=== PATIENT | female | born 1960 | race Two or more races ===

== ENCOUNTER 2018-05-29 17:28 | Inpatient (IN) | payer MEDICAID, OTHER ==
[~2018-05-29] VITALS: Ht 160 cm; Wt 61.5 kg
[~2018-05-29 17:28] MED LIST: SUCCINYLCHOLINE CHLORIDE 200MG/10ML IV ONE
[2018-05-29] MEDS ORDERED: SODIUM CHLORIDE 0.9% 1,000 ML IV ONE ×2 (18:45→19:45)
[2018-05-29] MEDS ORDERED: INSULIN REGULAR (DRIP) 100 UNITS in SODIUM CHLORIDE 0.9% 100 ML IV ONE (18:45)
[2018-05-29 18:58] LABS: HEMATOCRIT. 49.9 % (36.0-48.0); HEMOGLOBIN. 16.7 g/dL (12.0-16.0); MEAN CORPUSCULAR HEMOGLOBIN 30.1 pg (28.0-32.0); MEAN PLATELET VOLUME 8.7 fl (7.4-10.4); PLATELET 471 x1000/uL (130-400); RED BLOOD CELL COUNT 5.55 mill/uL (4.2-5.4); RED CELL DISTRIBUTION WIDTH 13.9 % (11.6-14.6)
[2018-05-29] MEDS ORDERED: ETOMIDATE 2MG/ML 10ML VIAL IV ONE (19:00)
[2018-05-29] MEDS ORDERED: SUCCINYLCHOLINE CHLORIDE 200MG/10ML IV ONE (19:00)
[2018-05-29] MEDS ORDERED: MIDAZOLAM HCL 50 MG in DEXTROSE 5% WATER 40 ML IV ONE (19:00)
[2018-05-29] MEDS ORDERED: INSULIN REGULAR (DRIP) 100 UNITS in SODIUM CHLORIDE 0.9% 100 ML IV SCH (19:00)
[2018-05-29 19:01] LABS: CHLORIDE 94 mEq/L (98-107)
[2018-05-29] MEDS: PROPOFOL 10MG/ML 100ML 100 ML IV SCH ×2 (19:05→19:42)
[2018-05-29 19:33] LABS: PLATELET ESTIMATE INCREASED
[2018-05-29 19:43] LABS: BETA HYDROXYBUTYRATE 10.6 mMol/L (0.0-0.3)
[2018-05-29] MEDS ORDERED: MIDAZOLAM HCL 50 MG in DEXTROSE 5% WATER 40 ML IV NR (19:45)
[2018-05-29 19:51] LABS: BG BASE EXCESS -9.5 mmol/L (-2.0-2.0); BG CARBOXYHEMOGLOBIN 1.1 % (0.5-1.5); BG DEOXYHEMOGLOBIN 0.3 % (0.0-5.0); BG FRACTION INSPIRED OXYGEN 100; BG HCO3 ACT 14.6 mmol/L (22.0-26.0); BG METHEMOGLOBIN 0.5 % (0.0-1.5); BG OXYGEN SATURATION 99.7 % (92.0-98.5); BG OXYHEMOGLOBIN 98.1 % (94.0-97.0); BG PCO2 27.8 mmHg (35.0-45.0); BG PH 7.339 (7.350-7.450); BG PO2 444.1 mmHg (75.0-100.0); BG SAMPLE SITE LEFT RADIAL; BG TIDAL VOLUME(mL) 450 mL; BG TOTAL HEMOGLOBIN 14.9 g/dL (12.0-18.0); BG VENT MODE VENT - A/C; BG VENT RATE 14 set
[2018-05-29] MEDS ORDERED: SODIUM CHLORIDE 0.9% 1,000 ML IV SCH (19:59)
[2018-05-29] MEDS ORDERED: ONDANSETRON HCL 4MG/2ML INJ IV PRN (20:00)
[2018-05-29] MEDS ORDERED: GUAIFENESIN 200MG/10ML SUGAR FREE UDC PO PRN (20:00)
[2018-05-29] MEDS ORDERED: DOCUSATE SODIUM 100MG CAPSULE PO PRN (20:00)
[2018-05-29] MEDS ORDERED: PIPERACILLIN/TAZ 3.375G PREMIX 50 ML IV SCH (20:00)
[2018-05-29] MEDS ORDERED: IPRATROPIUM/ALBUTEROL 0.5-3(2.5)MG/3ML NEB HHN SCH (20:00)
[2018-05-29] MEDS ORDERED: NA PHOS,M-B/NA PHOS,DI-BA ENEMA 118ML PR PRN (20:00)
[2018-05-29] MEDS ORDERED: AZITHROMYCIN 500 MG in DEXT 5% WATER 250 ML IV SCH (20:00)
[2018-05-29] MEDS ORDERED: SODIUM CHLORIDE 0.9% 1000ML BAG (SEPSIS BOLUS) IV ONE (20:00)
[2018-05-29] MEDS ORDERED: DEXTROSE 50% WATER 50ML SYRINGE IV PRN ×2 (20:00)
[2018-05-29] MEDS ORDERED: LEVOFLOXACIN 500MG PREMIX 100 ML IV ONE (20:00)
[2018-05-29] MEDS ORDERED: IPRATROPIUM/ALBUTEROL 0.5-3(2.5)MG/3ML NEB INH PRN (20:00)
[2018-05-29] MEDS ORDERED: MAGNESIUM/ALUMINUM HYDROXIDE/SIMETHICONE 30ML UDC PO PRN (20:00)
[2018-05-29 20:50] LABS: BG BASE EXCESS -7.1 mmol/L (-2.0-2.0); BG CARBOXYHEMOGLOBIN 0.7 % (0.5-1.5); BG DEOXYHEMOGLOBIN 3.4 % (0.0-5.0); BG FRACTION INSPIRED OXYGEN 30; BG HCO3 ACT 16.3 mmol/L (22.0-26.0); BG METHEMOGLOBIN 0.1 % (0.0-1.5); BG OXYGEN SATURATION 96.6 % (92.0-98.5); BG OXYHEMOGLOBIN 95.8 % (94.0-97.0); BG PCO2 27.9 mmHg (35.0-45.0); BG PH 7.384 (7.350-7.450); BG PO2 90.8 mmHg (75.0-100.0); BG SAMPLE SITE LEFT RADIAL; BG TIDAL VOLUME(mL) 450 mL; BG TOTAL HEMOGLOBIN 14.8 g/dL (12.0-18.0); BG VENT MODE VENT - A/C; BG VENT RATE 14 set
[2018-05-29] MEDS ORDERED: PANTOPRAZOLE 80 MG in SODIUM CHLORIDE 0.9% 100 ML IV SCH ×4 (22:00)
[2018-05-29] MEDS ORDERED: PROPOFOL 10MG/ML 100ML 100 ML IV PRN (22:00)
[2018-05-29] MEDS ORDERED: VANCOMYCIN 1250MG in DEXTROSE 5% WATER 250ML IV SCH (22:00)
[2018-05-30] VITALS (25 sets, daily range): BP systolic 104–135; BP diastolic 63–81
[2018-05-30] MEDS: IPRATROPIUM/ALBUTEROL 0.5-3(2.5)MG/3ML NEB HHN SCH ×4 (00:04→20:21)
[2018-05-30] MEDS ORDERED: MIDAZOLAM HCL 50 MG in DEXTROSE 5% WATER 40 ML IV ONE (03:45)
[2018-05-30] MEDS ORDERED: DEXT 5%/0.9% NACL KCL 20MEQ/L 1,000 ML IV SCH (05:30)
[2018-05-30 07:58] LABS: BG BASE EXCESS 1.4 mmol/L (-2.0-2.0); BG CARBOXYHEMOGLOBIN 0.1 % (0.5-1.5); BG DEOXYHEMOGLOBIN 3.3 % (0.0-5.0); BG FRACTION INSPIRED OXYGEN 30; BG METHEMOGLOBIN 0.3 % (0.0-1.5); BG OXYGEN SATURATION 96.7 % (92.0-98.5); BG OXYHEMOGLOBIN 96.3 % (94.0-97.0); BG PH 7.459 (7.350-7.450); BG PO2 87.5 mmHg (75.0-100.0); BG SAMPLE SITE RIGHT RADIAL; BG TIDAL VOLUME(mL) 450 mL; BG TOTAL HEMOGLOBIN 11.8 g/dL (12.0-18.0); BG VENT MODE VENT - A/C; BG VENT RATE 14 set
[2018-05-30] MEDS: BLOOD SUGAR DIAGNOSTIC STRIP TEST SCH ×15 (09:00→23:15)
[2018-05-30] MEDS ORDERED: NOREPINEPHRINE 4MG/250ML PMX 250 ML IV PRN (09:30)
[2018-05-30] MEDS ORDERED: NOREPINEPHRINE 8 MG in DEXT 5% WATER 242 ML IV PRN (10:00)
[2018-05-30] MEDS ORDERED: INSULIN REGULAR (DRIP) 100 UNITS in SODIUM CHLORIDE 0.9% 99 ML IV PRN (10:15)
[2018-05-30] MEDS ORDERED: LIDOCAINE HCL 1% 20ML VIAL (Pyxis) INJ ONE (10:41)
[2018-05-30] MEDS ORDERED: LEVOFLOXACIN 500MG PREMIX 100 ML IV SCH (11:00)
[2018-05-30] MEDS: FENTANYL CITRATE/PF 500 MCG in SODIUM CHLORIDE 0.9% 40 ML IV PRN (11:59)
[2018-05-30] MEDS: METRONIDAZOLE 500 MG PREMIX 100 ML IV SCH ×3 (12:00→22:03)
[2018-05-30 13:40] LABS: CHLORIDE 122 mEq/L (98-107)
[2018-05-30] MEDS: VANCOMYCIN 750 MG PREMIX 150 ML IV SCH ×2 (13:41→23:15)
[2018-05-30 13:46] LABS: PHOSPHORUS 1.4 mg/dL (2.5-4.9)
[2018-05-30 14:05] LABS: HEPATITIS B SURFACE ANTIGEN NEGATIVE
[2018-05-30 14:35] LABS: HEPATITIS A AB IGM NEGATIVE (NEGATIVE)
[2018-05-30 14:40] LABS: HEMATOCRIT. 38.1 % (36.0-48.0); HEMOGLOBIN. 13.1 g/dL (12.0-16.0); MEAN CORPUSCULAR HEMOGLOBIN 30.5 pg (28.0-32.0); MEAN CORPUSCULAR VOLUME 88.7 fL (81.0-99.0); MEAN PLATELET VOLUME 8.6 fl (7.4-10.4); PLATELET 290 x1000/uL (130-400); RED CELL DISTRIBUTION WIDTH 13.8 % (11.6-14.6)
[2018-05-30 15:00] LABS: PLATELET ESTIMATE NORMAL
[2018-05-30] MEDS: INSULIN REGULAR (DRIP) 100 UNITS in SODIUM CHLORIDE 0.9% 99 ML IV SCH (16:36)
[2018-05-30] MEDS: DEXT 5%/0.45% NACL KCL 20MEQ/L 1,000 ML IV SCH ×2 (17:26→23:15)
[2018-05-30] MEDS ORDERED: SODIUM CHL 0.45% + KCL 20MEQ/L 1,000 ML IV SCH (18:00)
[2018-05-30] MEDS ORDERED: POTASSIUM PHOS,M-BASIC-D-BASIC 20 MMOL in DEXT 5% WATER 243.3333 ML IV NR (18:00)
[2018-05-30] MEDS: PANTOPRAZOLE SODIUM 40 MG/VIAL IV SCH (20:16)
[2018-05-30] MEDS: MIDAZOLAM HCL 100 MG in DEXT 5% WATER 80 ML IV PRN (22:05)
[2018-05-31] VITALS (33 sets, daily range): BP systolic 110–151; BP diastolic 65–87
[2018-05-31] MEDS: IPRATROPIUM/ALBUTEROL 0.5-3(2.5)MG/3ML NEB HHN SCH ×5 (00:35→21:06)
[2018-05-31] MEDS: BLOOD SUGAR DIAGNOSTIC STRIP TEST SCH ×13 (00:52→20:52)
[2018-05-31] MEDS: INSULIN REGULAR (DRIP) 100 UNITS in SODIUM CHLORIDE 0.9% 99 ML IV SCH (03:11)
[2018-05-31] MEDS: FENTANYL CITRATE/PF 500 MCG in SODIUM CHLORIDE 0.9% 40 ML IV PRN (03:19)
[2018-05-31 04:10] LABS: CHLORIDE 120 mEq/L (98-107)
[2018-05-31] MEDS: METRONIDAZOLE 500 MG PREMIX 100 ML IV SCH (06:31)
[2018-05-31] MEDS: DEXT 5%/0.45% NACL KCL 20MEQ/L 1,000 ML IV SCH ×3 (06:32→18:16)
[2018-05-31 09:01] LABS: BG BASE EXCESS -4.1 mmol/L (-2.0-2.0); BG CARBOXYHEMOGLOBIN 0.9 % (0.5-1.5); BG DEOXYHEMOGLOBIN 2.6 % (0.0-5.0); BG FRACTION INSPIRED OXYGEN 30; BG HCO3 ACT 19.6 mmol/L (22.0-26.0); BG METHEMOGLOBIN 0.2 % (0.0-1.5); BG OXYGEN SATURATION 97.4 % (92.0-98.5); BG OXYHEMOGLOBIN 96.3 % (94.0-97.0); BG PCO2 31.9 mmHg (35.0-45.0); BG PH 7.407 (7.350-7.450); BG PO2 96.5 mmHg (75.0-100.0); BG SAMPLE SITE RIGHT RADIAL; BG TIDAL VOLUME(mL) 500 mL; BG VENT MODE VENT - A/C; BG VENT RATE 12 set
[2018-05-31 10:34] LABS: CLARITY URINE TURBID (CLEAR); COLOR URINE DARK YELLOW (YELLOW); KETONES URINE NEGATIVE (NEGATIVE); LEUKOCYTE ESTERASE URINE 1+ (NEGATIVE); NITRITE URINE NEGATIVE (NEGATIVE); OCCULT BLOOD URINE 2+ (NEGATIVE); PH URINE 5.5 (4.5-8.0); PROTEIN URINE 2+ (NEGATIVE); SPECIFIC GRAVITY URINE 1.026 (1.005-1.030)
[2018-05-31] MEDS ORDERED: DEXTROSE 50% WATER 50ML SYRINGE IV PRN (10:45)
[2018-05-31] MEDS ORDERED: LEVOFLOXACIN 250MG PREMIX 50 ML IV SCH (11:00)
[2018-05-31 11:15] LABS: *AMPHETAMINES SCREEN URINE NEGATIVE (NEGATIVE); *BARBITURATES SCREEN URINE NEGATIVE (NEGATIVE); *BENZODIAZEPINES SCREEN URINE PRESUMTIVE POSITIVE (NEGATIVE); *COCAINE SCREEN URINE NEGATIVE (NEGATIVE)
[2018-05-31 11:16] LABS: CANNABINOID URINE SCREEN NEGATIVE (NEGATIVE); METHADONE URINE SCREEN NEGATIVE (NEGATIVE); OPIATES URINE SCREEN PRESUMTIVE POSITIVE (NEGATIVE); PHENCYCLIDINE URINE SCREEN NEGATIVE (NEGATIVE)
[2018-05-31] MEDS: VANCOMYCIN 750 MG PREMIX 150 ML IV SCH (11:32)
[2018-05-31] MEDS: PANTOPRAZOLE SODIUM 40 MG/VIAL IV SCH ×2 (11:32→19:26)
[2018-05-31] MEDS ORDERED: GENTAMICIN 120MG PREMIX 100 ML IV SCH (12:30)
[2018-05-31 12:57] LABS: HEMOGLOBIN. 13.1 g/dL (12.0-16.0); MEAN CORPUSCULAR HEMOGLOBIN 29.9 pg (28.0-32.0); MEAN CORPUSCULAR VOLUME 88.9 fL (81.0-99.0); PLATELET 219 x1000/uL (130-400); RED BLOOD CELL COUNT 4.38 mill/uL (4.2-5.4); RED CELL DISTRIBUTION WIDTH 14.2 % (11.6-14.6)
[2018-05-31 13:00] LABS: CHLORIDE 120 mEq/L (98-107)
[2018-05-31 13:07] LABS: HIV SCREEN 4G Non Reactive (Non Reactive)
[2018-05-31 13:09] LABS: CREATINE KINASE 138 IU/L (26-192)
[2018-05-31 13:51] LABS: PLATELET ESTIMATE NORMAL
[2018-05-31] MEDS: INSULIN LISPRO 100 UNITS/ML SUBCUT SCH ×3 (15:00→21:00)
[2018-05-31] MEDS: GENTAMICIN SULFATE 160 MG in SODIUM CHLORIDE 0.9% 100 ML IV SCH (15:16)
[2018-05-31] MEDS ORDERED: GENTAMICIN SULFATE 160 MG in SODIUM CHLORIDE 0.9% 100 ML IV SCH (16:00)
[2018-05-31] MEDS: SUCRALFATE 1 G/10 ML UDC PO SCH ×2 (19:26→21:50)
[2018-05-31] MEDS ORDERED: SODIUM CHLORIDE 0.9% 1,000 ML IV ONE (20:00)
[2018-05-31 20:43] LABS: CHLORIDE 119 mEq/L (98-107)
[2018-05-31] MEDS: INSULIN GLARGINE UD 100 UNITS/ML SYR SUBCUT SCH (21:50)
[2018-05-31] MEDS ORDERED: INSULIN GLARGINE UD 100 UNITS/ML SYR SUBCUT SCH (22:00)
[2018-06-01] VITALS (25 sets, daily range): BP systolic 112–166; BP diastolic 67–103
[2018-06-01 01:17] LABS: CHLORIDE 121 mEq/L (98-107)
[2018-06-01] MEDS: IPRATROPIUM/ALBUTEROL 0.5-3(2.5)MG/3ML NEB HHN SCH ×4 (01:22→20:32)
[2018-06-01] MEDS: GENTAMICIN SULFATE 160 MG in SODIUM CHLORIDE 0.9% 100 ML IV SCH ×2 (01:56→17:56)
[2018-06-01] MEDS: DEXT 5%/0.45% NACL KCL 20MEQ/L 1,000 ML IV SCH ×4 (01:56→23:22)
[2018-06-01] MEDS: CLONIDINE 0.1MG TABLET PO PRN (04:05)
[2018-06-01 06:55] LABS: CHLORIDE 121 mEq/L (98-107)
[2018-06-01 08:11] LABS: HEMATOCRIT. 39.8 % (36.0-48.0); HEMOGLOBIN. 13.2 g/dL (12.0-16.0); MEAN CORPUSCULAR HEMOGLOBIN 29.8 pg (28.0-32.0); MEAN CORPUSCULAR VOLUME 89.6 fL (81.0-99.0); MEAN PLATELET VOLUME 9.9 fl (7.4-10.4); PLATELET 136 x1000/uL (130-400); RED BLOOD CELL COUNT 4.44 mill/uL (4.2-5.4); RED CELL DISTRIBUTION WIDTH 14.5 % (11.6-14.6)
[2018-06-01 09:10] LABS: BG BASE EXCESS -6.7 mmol/L (-2.0-2.0); BG CARBOXYHEMOGLOBIN 0.9 % (0.5-1.5); BG DEOXYHEMOGLOBIN 3.4 % (0.0-5.0); BG FRACTION INSPIRED OXYGEN 30; BG HCO3 ACT 17.6 mmol/L (22.0-26.0); BG METHEMOGLOBIN 0.3 % (0.0-1.5); BG OXYGEN SATURATION 96.6 % (92.0-98.5); BG OXYHEMOGLOBIN 95.4 % (94.0-97.0); BG PCO2 31.2 mmHg (35.0-45.0); BG PH 7.368 (7.350-7.450); BG PO2 88.5 mmHg (75.0-100.0); BG SAMPLE SITE RIGHT RADIAL; BG TIDAL VOLUME(mL) 500 mL; BG TOTAL HEMOGLOBIN 11.3 g/dL (12.0-18.0); BG VENT MODE VENT - A/C; BG VENT RATE 12 set
[2018-06-01] MEDS: BLOOD SUGAR DIAGNOSTIC STRIP TEST SCH ×4 (09:36→23:21)
[2018-06-01] MEDS: INSULIN GLARGINE UD 100 UNITS/ML SYR SUBCUT SCH (09:55)
[2018-06-01] MEDS: INSULIN LISPRO 100 UNITS/ML SUBCUT SCH ×4 (09:55→23:34)
[2018-06-01] MEDS ORDERED: INSULIN GLARGINE UD 100 UNITS/ML SYR SUBCUT SCH (11:00)
[2018-06-01] MEDS ORDERED: INSULIN GLARGINE UD 100 UNITS/ML SYR SUBCUT NR (11:00)
[2018-06-01] MEDS: SUCRALFATE 1 G/10 ML UDC PO SCH ×4 (11:09→20:55)
[2018-06-01] MEDS: PANTOPRAZOLE SODIUM 40 MG/VIAL IV SCH ×2 (11:09→17:32)
[2018-06-01 14:01] LABS: NUCLEATED RED BLOOD CELLS 1 /100 WBC; PLATELET ESTIMATE NORMAL
[2018-06-01] MEDS: METRONIDAZOLE 500MG TABLET PO SCH ×2 (17:32→20:55)
[2018-06-01] MEDS: ACETAMINOPHEN 650MG/20.3ML UDC NG PRN (20:55)
[2018-06-02] VITALS (24 sets, daily range): BP systolic 116–199; BP diastolic 65–118
[2018-06-02] MEDS: GENTAMICIN SULFATE 160 MG in SODIUM CHLORIDE 0.9% 100 ML IV SCH ×2 (00:55→14:55)
[2018-06-02] MEDS: IPRATROPIUM/ALBUTEROL 0.5-3(2.5)MG/3ML NEB HHN SCH ×4 (01:24→21:04)
[2018-06-02] MEDS: CLONIDINE 0.1MG TABLET PO PRN ×2 (03:19→17:48)
[2018-06-02] MEDS: BLOOD SUGAR DIAGNOSTIC STRIP TEST SCH ×3 (05:22→17:40)
[2018-06-02] MEDS: INSULIN LISPRO 100 UNITS/ML SUBCUT SCH ×3 (05:22→17:39)
[2018-06-02] MEDS: DEXT 5%/0.45% NACL KCL 20MEQ/L 1,000 ML IV SCH ×2 (06:40→11:03)
[2018-06-02 08:20] LABS: CHLORIDE 124 mEq/L (98-107)
[2018-06-02] MEDS: SUCRALFATE 1 G/10 ML UDC PO SCH ×4 (08:32→20:59)
[2018-06-02] MEDS: PANTOPRAZOLE SODIUM 40 MG/VIAL IV SCH ×2 (08:33→16:54)
[2018-06-02] MEDS: METRONIDAZOLE 500MG TABLET PO SCH ×2 (08:33→21:00)
[2018-06-02 08:53] LABS: BG CARBOXYHEMOGLOBIN 1.6 % (0.5-1.5); BG DEOXYHEMOGLOBIN 3.1 % (0.0-5.0); BG FRACTION INSPIRED OXYGEN 30; BG HCO3 ACT 17.8 mmol/L (22.0-26.0); BG METHEMOGLOBIN 0.2 % (0.0-1.5); BG OXYGEN SATURATION 96.8 % (92.0-98.5); BG OXYHEMOGLOBIN 95.1 % (94.0-97.0); BG PCO2 27.1 mmHg (35.0-45.0); BG PH 7.435 (7.350-7.450); BG PO2 86.1 mmHg (75.0-100.0); BG SAMPLE SITE RIGHT RADIAL; BG TIDAL VOLUME(mL) 500 mL; BG TOTAL HEMOGLOBIN 12.5 g/dL (12.0-18.0); BG VENT MODE VENT - A/C; BG VENT RATE 12 set
[2018-06-02 09:16] LABS: GENTAMICIN RANDOM 3.6 ug/mL
[2018-06-02] MEDS ORDERED: INSULIN GLARGINE UD 100 UNITS/ML SYR SUBCUT SCH (10:00)
[2018-06-02] MEDS: INSULIN GLARGINE UD 100 UNITS/ML SYR SUBCUT SCH (11:03)
[2018-06-02 12:19] LABS: HEMATOCRIT. 37.8 % (36.0-48.0); HEMOGLOBIN. 12.8 g/dL (12.0-16.0); MEAN CORPUSCULAR HEMOGLOBIN 29.7 pg (28.0-32.0); MEAN CORPUSCULAR VOLUME 87.9 fL (81.0-99.0); MEAN PLATELET VOLUME 9.7 fl (7.4-10.4); PLATELET 222 x1000/uL (130-400); RED CELL DISTRIBUTION WIDTH 14.4 % (11.6-14.6)
[2018-06-02 12:39] LABS: PLATELET ESTIMATE NORMAL
[2018-06-02] MEDS: ACETAMINOPHEN 650MG/20.3ML UDC NG PRN (20:15)
[2018-06-03] VITALS (24 sets, daily range): BP systolic 117–160; BP diastolic 62–89
[2018-06-03] MEDS: INSULIN LISPRO 100 UNITS/ML SUBCUT SCH ×4 (00:07→18:09)
[2018-06-03] MEDS: GENTAMICIN SULFATE 160 MG in SODIUM CHLORIDE 0.9% 100 ML IV SCH (00:32)
[2018-06-03] MEDS: MIDAZOLAM HCL 100 MG in DEXT 5% WATER 80 ML IV PRN ×2 (00:52→20:20)
[2018-06-03] MEDS: IPRATROPIUM/ALBUTEROL 0.5-3(2.5)MG/3ML NEB HHN SCH ×4 (02:00→19:54)
[2018-06-03] MEDS: BLOOD SUGAR DIAGNOSTIC STRIP TEST SCH ×2 (06:00)
[2018-06-03 07:27] LABS: HEMATOCRIT. 34.4 % (36.0-48.0); HEMOGLOBIN. 11.8 g/dL (12.0-16.0); MEAN CORPUSCULAR HEMOGLOBIN 30.5 pg (28.0-32.0); MEAN CORPUSCULAR VOLUME 88.4 fL (81.0-99.0); MEAN PLATELET VOLUME 10.3 fl (7.4-10.4); PLATELET 273 x1000/uL (130-400); RED BLOOD CELL COUNT 3.89 mill/uL (4.2-5.4); RED CELL DISTRIBUTION WIDTH 14.2 % (11.6-14.6)
[2018-06-03 07:53] LABS: CHLORIDE 122 mEq/L (98-107)
[2018-06-03 08:09] LABS: BG BASE EXCESS -4.7 mmol/L (-2.0-2.0); BG CARBOXYHEMOGLOBIN 0.9 % (0.5-1.5); BG DEOXYHEMOGLOBIN 3.5 % (0.0-5.0); BG FRACTION INSPIRED OXYGEN 30; BG HCO3 ACT 17.8 mmol/L (22.0-26.0); BG METHEMOGLOBIN 0.3 % (0.0-1.5); BG OXYGEN SATURATION 96.5 % (92.0-98.5); BG OXYHEMOGLOBIN 95.3 % (94.0-97.0); BG PCO2 26.2 mmHg (35.0-45.0); BG PH 7.451 (7.350-7.450); BG PO2 80.1 mmHg (75.0-100.0); BG SAMPLE SITE RIGHT RADIAL; BG TIDAL VOLUME(mL) 500 mL; BG VENT MODE VENT - A/C; BG VENT RATE 12 set
[2018-06-03] MEDS: PANTOPRAZOLE SODIUM 40 MG/VIAL IV SCH ×2 (09:32→18:10)
[2018-06-03] MEDS: METRONIDAZOLE 500MG TABLET PO SCH (09:33)
[2018-06-03] MEDS: FLUCONAZOLE 100MG TABLET PO SCH (09:33)
[2018-06-03] MEDS: SUCRALFATE 1 G/10 ML UDC PO SCH (09:38)
[2018-06-03] MEDS: INSULIN GLARGINE UD 100 UNITS/ML SYR SUBCUT SCH (09:40)
[2018-06-03 09:51] LABS: PLATELET ESTIMATE NORMAL
[2018-06-04] VITALS (33 sets, daily range): BP systolic 112–186; BP diastolic 57–93
[2018-06-04] MEDS: INSULIN LISPRO 100 UNITS/ML SUBCUT SCH ×4 (00:17→17:09)
[2018-06-04] MEDS: GENTAMICIN SULFATE 160 MG in SODIUM CHLORIDE 0.9% 100 ML IV SCH ×2 (01:00→02:43)
[2018-06-04] MEDS: IPRATROPIUM/ALBUTEROL 0.5-3(2.5)MG/3ML NEB HHN SCH ×3 (02:25→19:57)
[2018-06-04] MEDS: METRONIDAZOLE 500MG TABLET PO SCH ×3 (02:44→22:13)
[2018-06-04] MEDS: BLOOD SUGAR DIAGNOSTIC STRIP TEST SCH ×4 (06:02→17:09)
[2018-06-04 07:44] LABS: BASOPHILS % 0.3 % (0.0-2.0); EOSINOPHILS % 0.4 % (0.0-5.0); HEMATOCRIT. 34.6 % (36.0-48.0); HEMOGLOBIN. 11.8 g/dL (12.0-16.0); LYMPHOCYTES % 7.6 % (20.0-50.0); MEAN CORPUSCULAR HEMOGLOBIN 29.7 pg (28.0-32.0); MEAN PLATELET VOLUME 9.6 fl (7.4-10.4); MONOCYTES % 10.6 % (2.0-8.0); NEUTROPHILS % 81.1 % (40.0-76.0); PLATELET 311 x1000/uL (130-400); RED BLOOD CELL COUNT 3.98 mill/uL (4.2-5.4); RED CELL DISTRIBUTION WIDTH 14.1 % (11.6-14.6)
[2018-06-04 07:56] LABS: CHLORIDE 126 mEq/L (98-107)
[2018-06-04] MEDS: PANTOPRAZOLE SODIUM 40 MG/VIAL IV SCH ×2 (08:07→17:09)
[2018-06-04] MEDS: FLUCONAZOLE 100MG TABLET PO SCH (08:08)
[2018-06-04] MEDS ORDERED: POTASSIUM CHLORIDE 20MEQ/PACKET PO SCH (08:30)
[2018-06-04] MEDS: DEXTROSE 5% WATER 1,000 ML IV SCH ×2 (09:02→23:47)
[2018-06-04] MEDS: SUCRALFATE 1 G/10 ML UDC PO SCH ×4 (09:03→22:13)
[2018-06-04] MEDS: INSULIN GLARGINE UD 100 UNITS/ML SYR SUBCUT SCH (09:04)
[2018-06-04 12:28] LABS: BG CARBOXYHEMOGLOBIN 0.6 % (0.5-1.5); BG CPAP (cmH2O) 0 cm(H2O); BG DEOXYHEMOGLOBIN 5.9 % (0.0-5.0); BG HCO3 ACT 22.2 mmol/L (22.0-26.0); BG OXYGEN SATURATION 94.1 % (92.0-98.5); BG OXYHEMOGLOBIN 93.5 % (94.0-97.0); BG PCO2 31.8 mmHg (35.0-45.0); BG PH 7.461 (7.350-7.450); BG PO2 67.7 mmHg (75.0-100.0); BG SAMPLE SITE RIGHT BRACHIAL; BG TOTAL HEMOGLOBIN 11.7 g/dL (12.0-18.0); BG VENT MODE VENT - CPAP
[2018-06-04] MEDS: CLONIDINE 0.1MG TABLET PO PRN (17:22)
[2018-06-05] VITALS (41 sets, daily range): BP systolic 125–174; BP diastolic 57–120
[2018-06-05] MEDS: BLOOD SUGAR DIAGNOSTIC STRIP TEST SCH ×4 (00:38→17:45)
[2018-06-05] MEDS: INSULIN LISPRO 100 UNITS/ML SUBCUT SCH ×4 (00:38→18:19)
[2018-06-05] MEDS: IPRATROPIUM/ALBUTEROL 0.5-3(2.5)MG/3ML NEB HHN SCH ×3 (01:56→20:54)
[2018-06-05] MEDS ORDERED: GENTAMICIN SULFATE 160 MG in SODIUM CHLORIDE 0.9% 100 ML IV SCH (04:00)
[2018-06-05 05:46] LABS: HEMATOCRIT. 31.4 % (36.0-48.0); HEMOGLOBIN. 10.7 g/dL (12.0-16.0); MEAN CORPUSCULAR HEMOGLOBIN 29.3 pg (28.0-32.0); MEAN PLATELET VOLUME 10.2 fl (7.4-10.4); PLATELET 351 x1000/uL (130-400); RED BLOOD CELL COUNT 3.65 mill/uL (4.2-5.4); RED CELL DISTRIBUTION WIDTH 14.3 % (11.6-14.6)
[2018-06-05 06:15] LABS: CHLORIDE 120 mEq/L (98-107)
[2018-06-05 07:13] LABS: ATYPICAL LYMPHOCYTES 1; PLATELET ESTIMATE NORMAL
[2018-06-05] MEDS: SUCRALFATE 1 G/10 ML UDC PO SCH ×4 (07:50→20:45)
[2018-06-05] MEDS ORDERED: POTASSIUM CHLORIDE INJ 40 MEQ in DEXT 5% WATER 250 ML IV SCH (08:30)
[2018-06-05] MEDS: METRONIDAZOLE 500MG TABLET PO SCH ×2 (09:00→20:45)
[2018-06-05] MEDS: INSULIN GLARGINE UD 100 UNITS/ML SYR SUBCUT SCH (09:58)
[2018-06-05] MEDS: PANTOPRAZOLE SODIUM 40 MG/VIAL IV SCH ×2 (09:59→18:17)
[2018-06-05 11:42] LABS: BG BASE EXCESS -0.4 mmol/L (-2.0-2.0); BG CARBOXYHEMOGLOBIN 0.5 % (0.5-1.5); BG DEOXYHEMOGLOBIN 3.2 % (0.0-5.0); BG FRACTION INSPIRED OXYGEN 30; BG HCO3 ACT 22.4 mmol/L (22.0-26.0); BG OXYGEN SATURATION 96.8 % (92.0-98.5); BG OXYHEMOGLOBIN 96.3 % (94.0-97.0); BG PCO2 31.1 mmHg (35.0-45.0); BG PH 7.476 (7.350-7.450); BG PRESSURE SUPPORT 8; BG SAMPLE SITE RIGHT RADIAL; BG TOTAL HEMOGLOBIN 11.5 g/dL (12.0-18.0); BG VENT MODE VENT - CPAP
[2018-06-05] MEDS: DEXTROSE 5% WATER 1,000 ML IV SCH (13:07)
[2018-06-05] MEDS ORDERED: DIATR MEGLU/DIATRIZOATE SOLN 30ML PO NR (14:00)
[2018-06-05] MEDS ORDERED: LIDOCAINE HCL/PF 1% 2ML VIAL ONE (15:25)
[2018-06-05] MEDS: FLUCONAZOLE 100MG TABLET PO SCH (15:53)
[2018-06-05] MEDS: CEFEPIME 1,000 MG in DEXTROSE 5% WATER 50 ML IV SCH (15:55)
[2018-06-05] MEDS ORDERED: POTASSIUM CHLORIDE 20MEQ/PACKET PO NR (23:00)
[2018-06-06] VITALS (39 sets, daily range): BP systolic 97–139; BP diastolic 47–87
[2018-06-06] MEDS: BLOOD SUGAR DIAGNOSTIC STRIP TEST SCH ×5 (00:37→23:25)
[2018-06-06] MEDS: DEXTROSE 5% WATER 1,000 ML IV SCH ×2 (00:42→14:43)
[2018-06-06] MEDS: IPRATROPIUM/ALBUTEROL 0.5-3(2.5)MG/3ML NEB HHN SCH ×4 (01:56→20:17)
[2018-06-06] MEDS: CEFEPIME 1,000 MG in DEXTROSE 5% WATER 50 ML IV SCH ×2 (02:06→14:44)
[2018-06-06 05:54] LABS: HEMATOCRIT. 30.1 % (36.0-48.0); HEMOGLOBIN. 10.1 g/dL (12.0-16.0); MEAN CORPUSCULAR VOLUME 85.9 fL (81.0-99.0); MEAN PLATELET VOLUME 8.8 fl (7.4-10.4); PLATELET 483 x1000/uL (130-400); RED CELL DISTRIBUTION WIDTH 14.1 % (11.6-14.6)
[2018-06-06] MEDS: INSULIN LISPRO 100 UNITS/ML SUBCUT SCH ×5 (06:00→23:25)
[2018-06-06] MEDS ORDERED: DIATR MEGLU/DIATRIZOATE SOLN 30ML PO NR (07:30)
[2018-06-06] MEDS: SUCRALFATE 1 G/10 ML UDC PO SCH ×4 (08:15→20:20)
[2018-06-06 08:53] LABS: CHLORIDE 119 mEq/L (98-107)
[2018-06-06] MEDS: PANTOPRAZOLE SODIUM 40 MG/VIAL IV SCH ×2 (09:07→17:15)
[2018-06-06] MEDS ORDERED: THROAT LOZENGES-BENZOCAINE/MENTH/CETYLPYRD CL LOZENGES MM PRN (09:45)
[2018-06-06] MEDS ORDERED: POTASSIUM CHLORIDE INJ 40 MEQ in DEXT 5% WATER 250 ML IV ONE ×2 (10:30→14:30)
[2018-06-06] MEDS: FLUCONAZOLE 100MG TABLET PO SCH (11:06)
[2018-06-06] MEDS: METRONIDAZOLE 500MG TABLET PO SCH ×2 (11:06→20:20)
[2018-06-06] MEDS: INSULIN GLARGINE UD 100 UNITS/ML SYR SUBCUT SCH (11:17)
[2018-06-06 11:56] LABS: PHOSPHORUS 1.7 mg/dL (2.5-4.9)
[2018-06-06] MEDS ORDERED: POTASSIUM PHOS,M-BASIC-D-BASIC 30 MMOL in DEXT 5% WATER 500 ML IV ONE (14:30)
[2018-06-06 16:59] LABS: PLATELET ESTIMATE INCREASED
[2018-06-06 23:19] LABS: PHOSPHORUS 4.4 mg/dL (2.5-4.9)
[2018-06-07] VITALS (47 sets, daily range): BP systolic 63–127; BP diastolic 19–93
[2018-06-07] MEDS ORDERED: POTASSIUM CHLORIDE INJ 40 MEQ in DEXT 5% WATER 250 ML IV NR (01:00)
[2018-06-07] MEDS: IPRATROPIUM/ALBUTEROL 0.5-3(2.5)MG/3ML NEB HHN SCH ×4 (02:31→19:46)
[2018-06-07] MEDS: DEXTROSE 5% WATER 1,000 ML IV SCH ×3 (03:10→16:01)
[2018-06-07] MEDS: CEFEPIME 1,000 MG in DEXTROSE 5% WATER 50 ML IV SCH ×2 (03:17→15:12)
[2018-06-07] MEDS: BLOOD SUGAR DIAGNOSTIC STRIP TEST SCH ×4 (05:41→20:47)
[2018-06-07] MEDS: INSULIN LISPRO 100 UNITS/ML SUBCUT SCH ×4 (05:41→20:47)
[2018-06-07 06:14] LABS: CHLORIDE 117 mEq/L (98-107)
[2018-06-07 06:29] LABS: PHOSPHORUS 2.9 mg/dL (2.5-4.9)
[2018-06-07 08:24] LABS: HEMATOCRIT 29.2 % (36.0-48.0); MEAN CORPUSCULAR HEMOGLOBIN 29.2 pg (28.0-32.0); MEAN CORPUSCULAR VOLUME 85.7 fL (81.0-99.0); PLATELET 586 x1000/uL (130-400); RED BLOOD CELL COUNT 3.41 mill/uL (4.2-5.4); RED CELL DISTRIBUTION WIDTH 14.2 % (11.6-14.6)
[2018-06-07 08:25] LABS: HEMOGLOBIN 9.9 g/dL (12.0-16.0)
[2018-06-07] MEDS: SUCRALFATE 1 G/10 ML UDC PO SCH ×4 (09:10→20:35)
[2018-06-07] MEDS: PANTOPRAZOLE SODIUM 40 MG/VIAL IV SCH ×2 (09:10→17:59)
[2018-06-07] MEDS: METRONIDAZOLE 500MG TABLET PO SCH ×2 (09:10→20:35)
[2018-06-07] MEDS: FLUCONAZOLE 100MG TABLET PO SCH (09:11)
[2018-06-07] MEDS: INSULIN GLARGINE UD 100 UNITS/ML SYR SUBCUT SCH (10:58)
[2018-06-07] MEDS: MICONAZOLE NITRATE 2% OINT 71GM TOP SCH (20:35)
[2018-06-07 21:44] LABS: CLARITY URINE CLEAR (CLEAR); COLOR URINE YELLOW (YELLOW); KETONES URINE NEGATIVE (NEGATIVE); LEUKOCYTE ESTERASE URINE 3+ (NEGATIVE); NITRITE URINE NEGATIVE (NEGATIVE); OCCULT BLOOD URINE 2+ (NEGATIVE); PH URINE 6.5 (4.5-8.0); PROTEIN URINE TRACE (NEGATIVE); SPECIFIC GRAVITY URINE 1.008 (1.005-1.030); UROBILINOGEN URINE 0.2 E.U./dL (0.2-1.0)
[2018-06-08] VITALS (34 sets, daily range): BP systolic 92–128; BP diastolic 44–75
[2018-06-08] MEDS: DEXTROSE 5% WATER 1,000 ML IV SCH ×2 (00:26→14:10)
[2018-06-08] MEDS: IPRATROPIUM/ALBUTEROL 0.5-3(2.5)MG/3ML NEB HHN SCH ×4 (01:28→20:14)
[2018-06-08] MEDS: CEFEPIME 1,000 MG in DEXTROSE 5% WATER 50 ML IV SCH ×2 (02:36→14:10)
[2018-06-08 05:16] LABS: BASOPHILS % 0.4 % (0.0-2.0); EOSINOPHILS % 0.4 % (0.0-5.0); HEMATOCRIT. 29.1 % (36.0-48.0); HEMOGLOBIN. 10.1 g/dL (12.0-16.0); LYMPHOCYTES % 9.1 % (20.0-50.0); MEAN CORPUSCULAR VOLUME 86.6 fL (81.0-99.0); MEAN PLATELET VOLUME 8.7 fl (7.4-10.4); MONOCYTES % 6.5 % (2.0-8.0); NEUTROPHILS % 83.6 % (40.0-76.0); PLATELET 660 x1000/uL (130-400); RED BLOOD CELL COUNT 3.36 mill/uL (4.2-5.4); RED CELL DISTRIBUTION WIDTH 14.6 % (11.6-14.6)
[2018-06-08 05:29] LABS: CHLORIDE 113 mEq/L (98-107)
[2018-06-08] MEDS: BLOOD SUGAR DIAGNOSTIC STRIP TEST SCH ×4 (07:13→21:35)
[2018-06-08] MEDS: INSULIN LISPRO 100 UNITS/ML SUBCUT SCH ×4 (07:14→21:37)
[2018-06-08] MEDS: FLUCONAZOLE 100MG TABLET PO SCH (08:28)
[2018-06-08] MEDS: SUCRALFATE 1 G/10 ML UDC PO SCH ×4 (08:28→20:27)
[2018-06-08] MEDS: PANTOPRAZOLE SODIUM 40 MG/VIAL IV SCH (08:28)
[2018-06-08] MEDS: METRONIDAZOLE 500MG TABLET PO SCH (08:29)
[2018-06-08] MEDS ORDERED: POTASSIUM CHLORIDE INJ 40 MEQ in DEXT 5% WATER 250 ML IV SCH (09:00)
[2018-06-08] MEDS ORDERED: OMEPRAZOLE 20MG CAPSULE EXTENDED RELEASE PO SCH (09:30)
[2018-06-08] MEDS: MICONAZOLE NITRATE 2% OINT 71GM TOP SCH ×2 (09:53→20:30)
[2018-06-08] MEDS ORDERED: LANSOPRAZOLE 30MG DR CAPSULE GT SCH (11:00)
[2018-06-08] MEDS: ACETAMINOPHEN 650MG/20.3ML UDC NG PRN (20:28)
[2018-06-09] VITALS (47 sets, daily range): BP systolic 80–165; BP diastolic 40–89
[2018-06-09] MEDS: DEXTROSE 5% WATER 1,000 ML IV SCH ×3 (00:01→08:33)
[2018-06-09] MEDS: CEFEPIME 1,000 MG in DEXTROSE 5% WATER 50 ML IV SCH ×2 (02:17→15:39)
[2018-06-09] MEDS: IPRATROPIUM/ALBUTEROL 0.5-3(2.5)MG/3ML NEB HHN SCH ×4 (02:26→21:49)
[2018-06-09] MEDS: BLOOD SUGAR DIAGNOSTIC STRIP TEST SCH ×4 (08:32→21:58)
[2018-06-09] MEDS: SUCRALFATE 1 G/10 ML UDC PO SCH ×4 (08:32→22:02)
[2018-06-09] MEDS: LANSOPRAZOLE 30MG DR CAPSULE GT SCH (08:32)
[2018-06-09] MEDS: MICONAZOLE NITRATE 2% OINT 71GM TOP SCH ×2 (08:33→21:00)
[2018-06-09] MEDS: FLUCONAZOLE 100MG TABLET PO SCH (08:33)
[2018-06-09] MEDS: INSULIN LISPRO 100 UNITS/ML SUBCUT SCH ×4 (08:48→22:01)
[2018-06-09 10:59] LABS: CHLORIDE 110 mEq/L (98-107)
[2018-06-09 11:25] LABS: HEMOGLOBIN. 10.5 g/dL (12.0-16.0); MEAN CORPUSCULAR HEMOGLOBIN 29.2 pg (28.0-32.0); MEAN CORPUSCULAR VOLUME 86.5 fL (81.0-99.0); MEAN PLATELET VOLUME 8.3 fl (7.4-10.4); PLATELET 746 x1000/uL (130-400); RED BLOOD CELL COUNT 3.59 mill/uL (4.2-5.4); RED CELL DISTRIBUTION WIDTH 14.6 % (11.6-14.6)
[2018-06-09] MEDS ORDERED: POTASSIUM CHLORIDE 20MEQ TABLET SR PO SCH (11:45)
[2018-06-09 12:21] LABS: ATYPICAL LYMPHOCYTES 1; PLATELET ESTIMATE MARKEDLY INCREASED
[2018-06-10] VITALS (18 sets, daily range): BP systolic 99–122; BP diastolic 55–69
[2018-06-10] MEDS: IPRATROPIUM/ALBUTEROL 0.5-3(2.5)MG/3ML NEB HHN SCH ×4 (03:19→21:35)
[2018-06-10] MEDS: CEFEPIME 1,000 MG in DEXTROSE 5% WATER 50 ML IV SCH ×2 (03:36→15:00)
[2018-06-10] MEDS: FLUCONAZOLE 100MG TABLET PO SCH (08:43)
[2018-06-10] MEDS: LANSOPRAZOLE 30MG DR CAPSULE GT SCH (08:43)
[2018-06-10] MEDS: SUCRALFATE 1 G/10 ML UDC PO SCH ×3 (08:43→21:59)
[2018-06-10] MEDS: INSULIN LISPRO 100 UNITS/ML SUBCUT SCH ×3 (08:44→22:04)
[2018-06-10] MEDS: MICONAZOLE NITRATE 2% OINT 71GM TOP SCH ×2 (08:45→22:00)
[2018-06-10] MEDS: DEXTROSE 5% WATER 1,000 ML IV SCH ×2 (08:45→22:00)
[2018-06-10] MEDS: BLOOD SUGAR DIAGNOSTIC STRIP TEST SCH ×3 (08:50→21:59)
[2018-06-10 11:04] LABS: BASOPHILS % 0.5 % (0.0-2.0); EOSINOPHILS % 0.4 % (0.0-5.0); HEMATOCRIT. 30.6 % (36.0-48.0); HEMOGLOBIN. 10.2 g/dL (12.0-16.0); LYMPHOCYTES % 10.1 % (20.0-50.0); MEAN CORPUSCULAR HEMOGLOBIN 29.2 pg (28.0-32.0); MEAN CORPUSCULAR VOLUME 87.5 fL (81.0-99.0); MEAN PLATELET VOLUME 7.9 fl (7.4-10.4); MONOCYTES % 6.1 % (2.0-8.0); NEUTROPHILS % 82.9 % (40.0-76.0); PLATELET 566 x1000/uL (130-400); RED BLOOD CELL COUNT 3.49 mill/uL (4.2-5.4); RED CELL DISTRIBUTION WIDTH 14.5 % (11.6-14.6)
[2018-06-10 11:11] LABS: CHLORIDE 110 mEq/L (98-107)
[2018-06-10 11:16] LABS: PHOSPHORUS 1.6 mg/dL (2.5-4.9)
[2018-06-11] MEDS: IPRATROPIUM/ALBUTEROL 0.5-3(2.5)MG/3ML NEB HHN SCH ×5 (01:14→22:17)
[2018-06-11] MEDS: CEFEPIME 1,000 MG in DEXTROSE 5% WATER 50 ML IV SCH ×2 (03:13→17:33)
[2018-06-11] MEDS: BLOOD SUGAR DIAGNOSTIC STRIP TEST SCH ×4 (06:46→20:25)
[2018-06-11] MEDS: LANSOPRAZOLE 30MG DR CAPSULE GT SCH (06:46)
[2018-06-11] MEDS: SUCRALFATE 1 G/10 ML UDC PO SCH ×4 (06:48→20:24)
[2018-06-11 08:00] VITALS: BP 118/58
[2018-06-11] MEDS: MICONAZOLE NITRATE 2% OINT 71GM TOP SCH ×2 (08:54→20:25)
[2018-06-11] MEDS: INSULIN LISPRO 100 UNITS/ML SUBCUT SCH ×4 (08:56→20:25)
[2018-06-11 11:55] VITALS: BP 117/62
[2018-06-11] MEDS: DEXTROSE 5% WATER 1,000 ML IV SCH (13:50)
[2018-06-11 15:42] VITALS: BP 120/64
[2018-06-11] MEDS: ACETAMINOPHEN 650MG/20.3ML UDC NG PRN (20:25)
[2018-06-11 20:50] VITALS: BP 116/62
[2018-06-12 00:15] VITALS: BP 105/52
[2018-06-12] MEDS: IPRATROPIUM/ALBUTEROL 0.5-3(2.5)MG/3ML NEB HHN SCH ×2 (02:05→08:56)
[2018-06-12] MEDS: DEXTROSE 5% WATER 1,000 ML IV SCH ×2 (03:54→16:30)
[2018-06-12 04:00] VITALS: BP 121/66
[2018-06-12] MEDS: CEFEPIME 1,000 MG in DEXTROSE 5% WATER 50 ML IV SCH (04:00)
[2018-06-12] MEDS: SUCRALFATE 1 G/10 ML UDC PO SCH ×4 (06:21→20:48)
[2018-06-12] MEDS: LANSOPRAZOLE 30MG DR CAPSULE GT SCH (06:21)
[2018-06-12] MEDS: BLOOD SUGAR DIAGNOSTIC STRIP TEST SCH ×4 (06:56→20:51)
[2018-06-12 08:00] VITALS: BP 132/67
[2018-06-12 08:02] LABS: BASOPHILS % 0.6 % (0.0-2.0); EOSINOPHILS % 0.5 % (0.0-5.0); HEMATOCRIT. 30.1 % (36.0-48.0); HEMOGLOBIN. 10.2 g/dL (12.0-16.0); MEAN CORPUSCULAR HEMOGLOBIN 29.4 pg (28.0-32.0); MEAN CORPUSCULAR VOLUME 86.5 fL (81.0-99.0); MEAN PLATELET VOLUME 7.4 fl (7.4-10.4); MONOCYTES % 6.4 % (2.0-8.0); NEUTROPHILS % 79.5 % (40.0-76.0); PLATELET 778 x1000/uL (130-400); RED BLOOD CELL COUNT 3.48 mill/uL (4.2-5.4); RED CELL DISTRIBUTION WIDTH 14.1 % (11.6-14.6)
[2018-06-12 08:24] LABS: CHLORIDE 110 mEq/L (98-107)
[2018-06-12] MEDS: INSULIN LISPRO 100 UNITS/ML SUBCUT SCH ×4 (09:12→20:53)
[2018-06-12 12:00] VITALS: BP 110/62
[2018-06-12 16:00] VITALS: BP 117/54
[2018-06-12] MEDS: FLUCONAZOLE 100MG TABLET PO SCH (16:59)
[2018-06-12] MEDS: MICONAZOLE NITRATE 2% OINT 71GM TOP SCH ×2 (17:01→20:48)
[2018-06-12 20:00] VITALS: BP 110/60
[2018-06-13] VITALS: BP 110/54
[2018-06-13 04:00] VITALS: BP 124/58
[2018-06-13 06:16] LABS: BASOPHILS % 0.7 % (0.0-2.0); EOSINOPHILS % 0.6 % (0.0-5.0); HEMATOCRIT. 27.8 % (36.0-48.0); HEMOGLOBIN. 9.6 g/dL (12.0-16.0); LYMPHOCYTES % 19.1 % (20.0-50.0); MEAN CORPUSCULAR HEMOGLOBIN 29.7 pg (28.0-32.0); MEAN CORPUSCULAR VOLUME 85.9 fL (81.0-99.0); MEAN PLATELET VOLUME 7.5 fl (7.4-10.4); NEUTROPHILS % 73.6 % (40.0-76.0); PLATELET 697 x1000/uL (130-400); RED BLOOD CELL COUNT 3.24 mill/uL (4.2-5.4); RED CELL DISTRIBUTION WIDTH 14.3 % (11.6-14.6)
[2018-06-13] MEDS: SUCRALFATE 1 G/10 ML UDC PO SCH ×2 (06:29→14:27)
[2018-06-13] MEDS: LANSOPRAZOLE 30MG DR CAPSULE GT SCH (06:29)
[2018-06-13] MEDS: DEXTROSE 5% WATER 1,000 ML IV SCH (06:29)
[2018-06-13] MEDS: BLOOD SUGAR DIAGNOSTIC STRIP TEST SCH ×2 (06:30→12:20)
[2018-06-13] MEDS: INSULIN LISPRO 100 UNITS/ML SUBCUT SCH ×2 (06:33→12:20)
[2018-06-13 08:00] VITALS: BP 109/61
[2018-06-13] MEDS: FLUCONAZOLE 100MG TABLET PO SCH (09:17)
[2018-06-13] MEDS: MICONAZOLE NITRATE 2% OINT 71GM TOP SCH (09:18)
[2018-06-13 12:30] VITALS: BP 111/61
[2018-06-13 14:10] VITALS: BP 111/61
== END 2018-06-13 17:43 | disposition home or self-care (01) | DRG 720 ==
LOC: ER 17:28 → CVICU 18:42 → EDBEDREQTM 18:45 → EDBEDREQ 18:45 → ENRESERV 05-30 08:00 → 6WST 06-10 17:24
PROVIDERS: ADMIT Internal Medicine; ATTEND Internal Medicine
PROC: 5A1955Z Respiratory Ventilation, Greater than 96 Consecutive Hours (ICD-10-PCS; principal; 2018-05-29)
PROC: 0BH17EZ Insertion of Endotracheal Airway into Trachea, Via Natural or Artificial Opening (ICD-10-PCS; 2018-05-29)
PROC: 05HY33Z Insertion of Infusion Device into Upper Vein, Percutaneous Approach (ICD-10-PCS; 2018-05-30)
DX: A41.51 Sepsis due to Escherichia coli [E. coli] (principal); J96.00 Acute respiratory failure, unspecified whether with hypoxia or hypercapnia; E43 Unspecified severe protein-calorie malnutrition; G93.41 Metabolic encephalopathy; E11.10 Type 2 diabetes mellitus with ketoacidosis without coma; L89.159 Pressure ulcer of sacral region, unspecified stage; K25.4 Chronic or unspecified gastric ulcer with hemorrhage; L89.219 Pressure ulcer of right hip, unspecified stage; N17.9 Acute kidney failure, unspecified; E11.43 Type 2 diabetes mellitus with diabetic autonomic (poly)neuropathy; K31.84 Gastroparesis; E87.6 Hypokalemia; E78.1 Pure hyperglyceridemia; N39.0 Urinary tract infection, site not specified; E87.0 Hyperosmolality and hypernatremia; F17.210 Nicotine dependence, cigarettes, uncomplicated; K21.9 Gastro-esophageal reflux disease without esophagitis; K29.60 Other gastritis without bleeding; R65.20 Severe sepsis without septic shock; T36.0X5A Adverse effect of penicillins, initial encounter; Z86.73 Personal history of transient ischemic attack (TIA), and cerebral infarction without residual deficits; Z88.0 Allergy status to penicillin; F41.9 Anxiety disorder, unspecified; K59.00 Constipation, unspecified; R74.0 Nonspecific elevation of levels of transaminase and lactic acid dehydrogenase [LDH]; J44.9 Chronic obstructive pulmonary disease, unspecified; I50.30 Unspecified diastolic (congestive) heart failure; N23 Unspecified renal colic; L89.029 Pressure ulcer of left elbow, unspecified stage; L89.019 Pressure ulcer of right elbow, unspecified stage; Z68.24 Body mass index [BMI] 24.0-24.9, adult
CPT/HCPCS: 36415; 36569; 36600; 70551; 71045; 72141; 72146; 74176; 76770; 76937; 80048; 80170; 80202; 80305; 82010; 82140; 82375; 82550; 82805; 82962; 83036; 83605; 83615; 83735; 83880; 84100; 84132; 84134; 84478; 84484; 85027; 85651; 86705; 86709; 86803; 87070; 87077; 87106; 87186; 87340; 87389; 92610; 93005; 93306; 93970; 94002; 94003; 94640; 96361; 96365; 96375; 97110; 97116; 97162; 97166; 97530; 97535; 99291; A6261; C1725; C9113; J0330; J0456; J0692; J1580; J1815; J1956; J2250; J2405; J2704; J3010; J3370; J3480; J3490; J7030; J7050; J7060; J7070; J7620; Q9963

== ENCOUNTER 2022-06-28 16:31 | Emergency (ER) | payer MEDICARE, MEDICAID | END 2022-06-28 19:16 | disposition left against medical advice (07) | LOC: ER 16:31 | DX: Z53.21 Procedure and treatment not carried out due to patient leaving prior to being seen by health care provider (principal) | CPT/HCPCS: 99281 ==

== ENCOUNTER 2023-04-23 14:01 | Emergency (ER) | payer MEDICARE, MEDICAID ==
[~2023-04-23] VITALS: Ht 154.9 cm; Wt 70.8 kg
[2023-04-23 14:19] VITALS: BP 146/70; RESP 16; TEMP 98; O2SAT 96
[2023-04-23 14:21] VITALS: PULSE 97
== END 2023-04-23 17:30 | disposition left against medical advice (07) ==
LOC: ER 14:01
DX: Z53.21 Procedure and treatment not carried out due to patient leaving prior to being seen by health care provider (principal)
CPT/HCPCS: 99281